=== PATIENT | female | born 1975 | race Hispanic/Latino ===

== ENCOUNTER 2024-01-23 01:01 | Emergency (ER) | payer OTHER ==
[~2024-01-23] VITALS: Ht 160 cm; Wt 73.0 kg
[2024-01-23 03:04] LABS: BASOPHILS # (AUTO) 0.03 K/uL (0.00-0.20); BASOPHILS % (AUTO) 0.5 % (0.0-5.0); EOSINOPHILS # (AUTO) 0.23 K/uL (0.00-0.70); EOSINOPHILS % (AUTO) 3.5 % (0.0-8.0); HEMATOCRIT 33.1 % (36-48); IMMATURE GRANULOCYTE ABSOLUTE 0.03 K/uL (0-1); LYMPHOCYTES # (AUTO) 1.7 K/uL (1.0-4.8); LYMPHOCYTES % (AUTO) 26.7 % (21.0-51.0); MEAN CORPUSCULAR HGB CONC 32.9 g/dL (32.0-36.0); MEAN CORPUSCULAR VOLUME 72.7 fL (79-99); MONOCYTES # (AUTO) 0.6 K/uL (0.1-1.0); MONOCYTES % (AUTO) 8.6 % (3.0-13.0); NEUTROPHILS # (AUTO) 3.9 K/uL (1.8-7.7); NEUTROPHILS % (AUTO) 60.2 % (40.0-77.0); PLATELET COUNT (AUTO) 435 K/uL (130-400); RED BLOOD CELL COUNT(AUTO) 4.55 MIL/uL (4.00-5.50); WHITE BLOOD COUNT (AUTO) 6.5 K/uL (4.8-10.8)
[2024-01-23 03:13] LABS: CREATININE 0.6 mg/dL (0.5-1.0); POTASSIUM 4.2 mmol/L (3.5-5.1)
[2024-01-23 03:18] LABS: ALBUMIN 3.6 g/dL (3.5-5.0); BILIRUBIN,TOTAL 0.4 mg/dL (0.2-1.0); TOTAL PROTEIN, SERUM 7.4 g/dL (6.0-8.3)
[2024-01-23] MEDS: CLONAZEPAM 1MG TAB PO ONE (03:30)
[2024-01-23 05:52] VITALS: BP 100/48; PULSE 77; RESP 18; O2SAT 98
[2024-01-24] MEDS ORDERED: HYDR-3422 PO (23:40)
== END 2024-01-23 06:13 | disposition home or self-care (01) ==
LOC: EEVIPCON 01:01 → EDH 01:01
DX: I73.00 Raynaud's syndrome without gangrene (principal); R41.82 Altered mental status, unspecified
CPT/HCPCS: 36415; 70450; 71045; 80053; 84703; 85025

== ENCOUNTER 2024-01-24 23:08 | Emergency (ER) | payer OTHER ==
[~2024-01-24] VITALS: Ht 162.6 cm; Wt 71.7 kg
[2024-01-24] MEDS ORDERED: HYDR-3422 PO (23:40)
[2024-01-25] MEDS: HYDROXYZINE 25 MG TABLET PO STA (00:19)
[2024-01-25 00:21] VITALS: BP 115/68; PULSE 68; RESP 16; O2SAT 98
== END 2024-01-25 00:30 | disposition home or self-care (01) ==
LOC: EDH 23:08 → EEVIPCON 23:08 → EDH 01-25 00:30
DX: I73.00 Raynaud's syndrome without gangrene (principal); F41.9 Anxiety disorder, unspecified